=== PATIENT | male | born 1960 | race Caucasian/White ===

== ENCOUNTER 2016-10-11 09:33 | Day surgery (SDC) | payer BC ==
[~2016-10-11 09:33] MED LIST: D5 LR 1000 ML 1,000 ML IV ONE
[2016-10-11] MEDS ORDERED: D5 LR 1000 ML 1,000 ML IV ONE (09:34)
[2016-10-11] MEDS ORDERED: DIPRIVAN VIAL 20 ML ONE ×2 (10:44→11:20)
--- NOTE | 2016-10-11 11:41 | OR.GENERIC ---
Post-Op Note Generic - Post-Op Note Operative Report: Procedure Note October 11, 2016 Pre-Operative Diagnosis: Screening colonoscopy. Post-Operative Diagnosis: Normal colonoscopy. Procedure: Colonoscopy to cecum. Surgeon: Danis Lomax MD. Stone Layout Marker: Armando Murcia CRNA. Specimens: None. Estimated blood loss: None. Complications: None. Summary: The patient is a 56 year old male who presented for a screening colonoscopy. The risk and benefits of the procedure including difficulty with anesthesia, bleeding, infection, as well as perforation were discussed with the patient. The patient understood these risks and requested the procedure. On October 11, 2016, the patient was brought to the endoscopy suite. A time out was performed verifying the patient and procedure. The patient was placed in a left lateral decubitus position. After satisfactory induction of monitored anesthesia care, a rectal exam was performed. The prostate was noted to be diffusely enlarged. Next, an endoscopy was advanced through the anus and directed to the cecum without difficulty. The scope was then withdrawn viewing all mucosal surfaces. The patients prep was adequate. The cecum, ascending, transverse, descending, as well as sigmoid portions of the colon were normal. Specifically, there were no masses, polyps, or diverticula. The scope was withdrawn into the rectum and retroflexed. No pathology was seen. The scope was straightened and insufflation evacuated. The scope was withdrawn and the procedure terminated. The patient was taken to the recovery room in stable condition. There were no complications.
[2016-10-11 12:22] VITALS: BP 123/75
== END 2016-10-11 11:50 | disposition home or self-care (01) ==
LOC: SURG1 09:33
PROVIDERS: ATTEND Student in an Organized Health Care Education/Training Program
DX: Z12.11 Encounter for screening for malignant neoplasm of colon (principal); R10.31 Right lower quadrant pain; N40.0 Benign prostatic hyperplasia without lower urinary tract symptoms
CPT/HCPCS: A4217; J3490; J7120